=== PATIENT | female | born 1965 | race Caucasian/White ===

== ENCOUNTER → 2024-01-19 14:37 | Outpatient (REF) | payer OTHER, SELFPAY | LOC: HWRAD 14:37 | PROVIDERS: ATTENDING PHYSICIAN Internal Medicine Rheumatology; FAMILY PHYSICIAN Internal Medicine | DX: M81.0 Age-related osteoporosis without current pathological fracture (principal); Z13.820 Encounter for screening for osteoporosis; Z12.31 Encounter for screening mammogram for malignant neoplasm of breast | CPT/HCPCS: 77063; 77067; 77080 ==

== ENCOUNTER → 2025-09-05 13:20 | Outpatient (REF) | payer OTHER, SELFPAY | LOC: RCS 13:20 | PROVIDERS: ATTENDING PHYSICIAN Internal Medicine | DX: I10 Essential (primary) hypertension (principal); R73.01 Impaired fasting glucose; E78.5 Hyperlipidemia, unspecified | CPT/HCPCS: 93017 ==

== ENCOUNTER → 2025-09-16 12:22 | Outpatient (REF) | payer OTHER, SELFPAY | LOC: HWRAD 12:22 | PROVIDERS: ATTENDING PHYSICIAN Student in an Organized Health Care Education/Training Program; FAMILY PHYSICIAN Internal Medicine | DX: R51.9 Headache, unspecified (principal) | CPT/HCPCS: 70486 ==